=== PATIENT | male | born 2000 | race Caucasian/White ===

== ENCOUNTER 2021-08-09 10:30 | Emergency (ER) | payer MEDICAID, SELFPAY ==
--- NOTE | ~2021-08-09 | CT_ITS ---
EXAMINATION: CT FACIAL BONES WITHOUT CONTRAST CLINICAL INFORMATION: Hit in the right eye with a paintball. COMPARISON: No similar priors. TECHNIQUE: CT images of the maxillofacial structures were obtained with axial, coronal and sagittal reformats. No intravenous contrast was administered. This CT examination was performed using dose optimization techniques as appropriate, variously including the following: *Automated exposure control *Adjustment of mA and/or kV according to patient size (this includes techniques or standardized protocols for targeted exams where dose is matched to indication/reason for exam; i.e. extremities or head) *Use of iterative reconstruction technique DLP: 252 mGy-cm FINDINGS: There is no acute maxillofacial fracture. The pterygoid plates are intact. The zygomatic arches are intact. The lamina papyracea are intact. The orbital rims are intact. The paranasal sinuses are well-aerated. No air-fluid levels are seen. There is leftward deviation of the nasal septum. No maxillary periapical disease is seen. The mastoid air cells and visualized middle ear cavities are well-aerated. The orbits are normal. The TMJs are unremarkable. The imaged portions of the brain demonstrate no acute abnormality. CT/CT facial bones wo con IMPRESSION: No acute intracranial process or discrete facial bone fracture.
[2021-08-09 10:35] VITALS: BP 139/85; PULSE 72; RESP 12; O2SAT 100; BMI 26.6
--- NOTE | 2021-08-09 11:03 | ED.EYEPROB ---
HPI - Eye Problem General Chief complaint: Eye Problems Stated complaint: eye inj Time Seen by Provider: 08/09/21 11:02 Source: patient Mode of arrival: ambulatory Limitations: no limitations History of Present Illness HPI Narrative: 20 yo male no known medical history presents at the emergency department with concerns of right eye pain status post getting hit in the eye 4 days ago with a paintball. He states that since then he has been having eye pain, he describes as pain behind the eye. He states he was not wearing eye protection when this happened. He states that his eye immediately became red, and has been tearing since the day it happened. He endorses photophobia. He denies changes in vision, pain with eye movement, nausea, vomiting, double vision, contact lens wearing,headache. Not on blood thinners MD chief complaint: eye pain (right eye ), eye redness (right eye ) and eye injury (hit in the eye with a paintball ) Onset (ago): day(s) (4) Onset description: sudden Duration: constant Location: right eye Eye Symptoms: pain (behind eye ) Place: other (playing paint ball ) Mechanism: direct trauma (hit with paintball ) Severity: moderate If Pain, Quality: sharp Associated symptoms: none Treatments Prior to Arrival: none Related Data Allergies Allergy/AdvReac Type Severity Reaction Status Date / Time No Known Allergies Allergy Unverified 06/22/20 19:50 [No Known Allergies*] Review of Systems Review of Systems: Constitutional : No Weight loss, No Fever, No Chills, No Night Sweats, No Fatigue, No Malaise ENT/Mouth : No Hearing loss, No Ear Pain, No Nasal Congestion, No Sinus Pain, No Hoarseness, No sore throat, No Rhinorrhea, No Swallowing Difficulty Eyes: + Eye Pain, No Swelling, + Redness, No Foreign Body, + Discharge, No Vision Changes Cardiovascular : No Chest Pain, No SOB, No Dyspnea on Exertion, No Orthopnea, No Edema, No Palpitations Respiratory : No Cough, No Sputum, No Wheezing, No Smoke Exposure, No Dyspnea Gastrointestinal : No Nausea, No Vomiting, No Diarrhea, No abdominal Pain, Musculoskeletal : No joint pain, No Myalgias, No Joint SwellingSkin : No Skin Lesions, No rash Neuro : No Weakness, No Numbness, No Paresthesias, No Loss of Consciousness, No Dizziness, No Headache PMFSH Past Medical History Medical History (Updated 08/09/21 @ 11:40 by Antonino Deluca) Asthma Social History Social History Advance Directives: No Advance Directives Information Provided: No Physical Exam Vital Signs: Vital Signs: Last Vital Signs Pulse 72 08/09/21 10:35 Resp 12 08/09/21 10:35 BP 139/85 08/09/21 10:35 Pulse Ox 100 08/09/21 10:35 Body Mass Index 26.6 vital signs have been reviewed as normal and appeared to be correct. Blood pressure normal. Heart rate normal. Respiration rate normal. Temperature normal. Oxygen saturation normal. Appearance: Alert. Oriented X3. No acute distress. Head: Normal external exam. Normocephalic. Atraumatic. No Lombardi signs noted. No raccoon eyes noted Eyes: PERRLA. EOMI pain free. Conjunctiva and sclera injected to right. Eyelids normal. Pressure to right eye 3 Left eye 10. No overlying erythema, ecchymosis. Opthalmic exam shows decreased red reflex to the right eye, possible viterous hemmorage in the right eye. No blood noted to anterior chamber . No pain to palpation over eithmoid, nasal or maxillary sinuses. No pain to palpation over the face. Pain behind eye when I press over right eye. ENT: Pharynx normal. Uvula midline. Moist mucous membranes. No trismus noted. No drooling noted. No muffled voice noted. Neck: Soft full range of motion CVS: Heart regular rate and rhythm no murmurs and rubs Respiratory: Breath sounds are clear to auscultation bilaterally. No accessory muscle use noted. Abdomen: Soft nontender no rebound or guarding positive bowel sounds Skin: Skin warm and dry. Normal skin color. Normal skin turgor. No rashes/lesions/lacerations noted. Neuro: Oriented X 3. No motor deficit. No sensory deficit. Reflexes normal. Course Reevaluation(s) Reevaluation #1: Discussed this case with Dr. Greco who recommends contacting ophthalmology due to the mechanism of this injury. Time: 11:24 Reevaluation #2: CT of facial bones negative. Safe for discharge to Dr. Spain office. Time: 12:42 MDM - Eye Problem MDM Narrative Medical decision making narrative: 1030 20-year-old male no known medical history presents to the emergency department with tearing to the right eye, conjunctival, scleral injection status post getting hit by a paintball 4 days ago. He states he is having pain, but it is localized to the back of his eye. He endorses photophobia. He denies vision changes, foreign body sensation, pain with extraocular movements, nausea, vomiting, headache. Patient does not wear contact lenses. Patient is not on blood thinners. Upon physical-examination PERRLA. EOMI pain free. Conjunctiva and sclera injected to right side. Eyelids normal. Pressure to right eye 3 Left eye 10. No overlying erythema, ecchymosis. No blood noted to anterior chamber . Ophthalmic exam shows decreased red reflex to the right eye and possible vitreous hemorrhage in the right eye. No pain to palpation over ethmoid, nasal or maxillary sinuses. No pain to palpation over the face. Pain behind eye when I press over right eye. When bright light is shined in the left eye pain is felt in the right eye, concerning for traumatic iritis. Plan CT of facial bones to r/o fracture. Will call Dr. Maloney for input/ guidance on this case. Imaging Data maxofacial: Radiologist's impression: [address] [address] [address] Scan Report Signed Patient: Tato Wilson MR#: [id number] : 2000 Acct:[id number] Age/Sex: 20 / M ADM Date: 08/09/21 Loc: HO.ED Attending Dr: Ordering Physician: Antonino Deluca Date of Service: 08/09/21 Procedure(s): CT facial bones wo con Accession Number(s): [id number] cc: Antonino Deluca ~ EXAMINATION: CT FACIAL BONES WITHOUT CONTRAST CLINICAL INFORMATION: Hit in the right eye with a paintball.? COMPARISON: No similar priors.? TECHNIQUE: CT images of the maxillofacial structures were obtained with axial, coronal and sagittal reformats. No intravenous contrast was administered.? This CT examination was performed using dose optimization techniques as appropriate, variously including the following: *Automated exposure control *Adjustment of mA and/or kV according to patient size (this includes techniques or standardized protocols for targeted exams where dose is matched to indication/reason for exam; i.e. extremities or head) *Use of iterative reconstruction technique DLP: 252 mGy-cm FINDINGS: There is no acute maxillofacial fracture. The pterygoid plates are intact. The zygomatic arches are intact. The lamina papyracea are intact. The orbital rims are intact. The paranasal sinuses are well-aerated. No air-fluid levels are seen. There is leftward deviation of the nasal septum. No maxillary periapical disease is seen. The mastoid air cells and visualized middle ear cavities are well-aerated. The orbits are normal. The TMJs are unremarkable. The imaged portions of the brain demonstrate no acute abnormality. CT/CT facial bones wo con IMPRESSION: No acute intracranial process or discrete facial bone fracture. Dictated By: Fidelina Arboleda Signed By: <Electronically signed by Fidelina? Nkechi in [place]> 08/09/21 1236 DD/ 1102 TD/TT:? Project Landscape Architect: Discharge Plan Discharge Clinical Impression: Traumatic iritis Patient Disposition: Home, Self-Care Instructions: Iritis (ED) Additional Instructions: Please go to Dr. Spain office after discharge with your CT results. Return to the emergency department with new or worsening symptoms Referrals: Steve Maloney [Physician] - 2 days Stand Alone Forms: Work/School Release Interventions: ED Discharge Assessment Last Done: 08/09/21 12:45 Discharge Date/Time: 08/09/21 12:47 Print Language: [place]
== END 2021-08-09 12:47 | disposition home or self-care (01) ==
PROVIDERS: Emergency Provider Emergency Medicine
DX: H20.9 Unspecified iridocyclitis (principal)
CPT/HCPCS: 70486; 99283; 99284